=== PATIENT | male | born 1940 | race Caucasian/White ===

== ENCOUNTER → 2020-03-14 14:18 | Outpatient (CLI) | payer OTHER, SELFPAY ==
[2020-03-15 10:05] LABS: COVID19 Sendout NOT DETECTED (Not Detect)
== END ==
PROVIDERS: PCP Family Medicine; Visit Provider Physician Assistant
DX: Z01.812 Encounter for preprocedural laboratory examination (principal)
CPT/HCPCS: 87635

== ENCOUNTER 2020-03-17 06:23 | Inpatient (IN) | payer OTHER, SELFPAY ==
[2020-03-13 11:41] VITALS: BMI 32.5
[2020-03-17] VITALS (16 sets, daily range): BP systolic 104–170; BP diastolic 47–71; PULSE 58–81; RESP 7–16; TEMP 36–37.5; O2SAT 89–97; BMI 31.1
--- NOTE | 2020-03-17 | DI.RAD.S_ITS ---
PROCEDURE: XR LUMBAR SPINE 2-3V INDICATIONS: L4-L5 TLIF TECHNIQUE: 2 views of the lumbar spine were acquired. COMPARISON: None. FINDINGS: Interpreted views demonstrating L4-L5 paraspinal claude and pedicle screw fixation, interbody cage graft. There is expected intraoperative alignment Dictated by: Galileo Cruz M.D. on 03/17/2020 at 11:59 Approved by: Galileo Cruz M.D. on 03/17/2020 at 12:50
[2020-03-17] MEDS: LACTATED RINGERS 1,000 ML 42 ML IV ×2 (07:11→10:24)
[2020-03-17] MEDS: GABAPENTIN 300 MG CAPSULE PO (07:22)
[2020-03-17] MEDS: ACETAMINOPHEN 325 MG TABLET 975 MG PO (07:22)
[2020-03-17] MEDS: CEFAZOLIN 2 GM/100 ML FROZ.PIGGY IV ×3 (07:45→23:39)
--- NOTE | 2020-03-17 08:26 | SUR.OPER ---
Prone on spine table, head in foam head support, padded chest and pelvic supports, gel pad at knees, lower legs supported by pillows; nipples, genitalia and toes free of pressure, arms secured on foam padded arm boards at <90 degrees abduction. Tape over blanket at thigh secured to table.
[2020-03-17] MEDS: BUPIVACAINE LIPOSOME 266 MG/20 ML VIAL INJ (08:34)
[2020-03-17] MEDS: BUPIVACAINE 0.25% W/ EPI 30 ML VIAL INJ (08:35)
--- NOTE | 2020-03-17 11:02 | PM.PREOP ---
Pre-operative Note COVID-19 COVID-19 status: Negative Result date/Date tested (Pos, Neg/Pending): 03/14/20 Interval Note History & Physical reviewed/Exam performed by Physician: Yes Changes to H&P: No
--- NOTE | 2020-03-17 11:03 | P.OP_ITS ---
Operative Date/Time/Diagnoses Date of procedure: 03/17/20 Time of procedure: 07:55 Pre-op diagnosis: 1. L4-S1 spondylolisthesis 2. L4-S1 spinal stenosis with radiculopathy Post-op diagnosis: same Procedure & Clinicians Procedure: 1. L4-S1 Postero-lateral and posterior interbody fusion 2. L4-S1 interbody cage placement. 3. L4-S1 decompressive laminectomy with bilateral facetecomies 4. L4-S1 Posterior non-segmental instrumentation 5. F[place]on of bone marrow from iliac crest 6. Utilization of microsurgical technique and operating microscope Same procedure as scheduled: Yes Indications: Patient has been having chronic back pain and worsening lumbar radiculopathy. Patient failed multiple conservative management with worsening pain weakness and numbness in her lower extremity. Patient has been having difficulty performing activity of daily living. After discussing risks benefits of treatment options, patient elected proceed with surgery. For nomenclature purposes, patient's most caudal mobile segment is considered L4-S1. Patient has only 4 lumbar segments. In order to keep naming consistent, the fusion level is noted as L4-S1. Surgeon: Marilou Joiner Service Or Work Dispatcher Chief: Danette Giles Click Yes if Unassisted: No Anesthesia Type: General Operative Notes Closure Type: primary Specimen(s): none sent Prosthetic devices, grafts, tissues, transplants, or devices: Globus revolve screws, Rise cage Estimated Blood Loss (mL): 50 Blood products transfused: none Procedure in detail: Patient was seen in the preoperative area. Risks and benefits of the surgery was discussed with the patient. Informed consent was obtained from the patient and placed in the chart. Surgical site was marked. Patient was taken to the operative room. General anesthesia was administered. Prophylactic antibiotic was given to the patient less than 30 min before the incision was made. Patient was placed into a prone position on the Severino table. Patient's back was then prepped and draped in the sterile fashion. Time- out was performed at this time. Using AP and lateral C-arm imaging the interval between L4 and S1 was identified and marked on patient's back. A 2 inch incision 2 in from midline was made on the left side first. The fascia was incised in line with skin incision. Globus MARS retractors was placed inside the incision and docked onto the L4 lamina. Using microsurgical technique and operating microscope, a L4 laminectomy and L4- S1 facetectomy was performed using a Kerrison rongeur. The disc space at L4-5 was identified. And a total diskectomy was performed at L4-5 level. The endplates were decorticated using a rasp and shaver. The total diskectomy and decortication was performed at L4-S1 level in order to to accomplish a L4-S1 fusion. The local bone from the laminectomy and facetectomy was saved for local bone grafting. During the process of laminectomy and facetectomy a small dural defect was seen countered with minimum CSF leakage. A DuraGen and Tisseel was used to patch the dural defect. There was no CSF leakage during the process of the surgery. Patient's ligamentum flavum was found to be intimately connected to patient's dura at the L4-S1 epidural space. After the total diskectomy and decortication was completed, Trifecta bone graft material was combined with local bone that was harvested earlier. At this time, a separate skin is incision was made over the iliac crest. A Jamshidi needle was inserted into the iliac crest through a separate skin incision. 5 cc of bone marrow aspiration was obtained through the separate skin incision using a Jamshidi needle from the iliac crest. The bone marrow aspiration was combined with local bone and the Trifecta bone grafting material. The bone grafting material was placed into the L4-S1 interbody space along with a expandable cage. The cage was expanded to its maximum height using the torque limiting screwdriver. At this time a mirror image incision was made on the right side. The fascia was incised in line with the skin incision. Globus MARS retractor was inserted and docked onto the L4-S1 posterolateral gutter. Using the power drill, posterior- lateral decortication was performed at L4-S1 level until bleeding cortical bone was identified. The remaining bone grafting material was placed into the L4-S1 posterior lateral gutter he order to accomplish posterolateral fusion at the L4- S1 level. Using the double C-arm technique, pedicle screws were placed into the L4-S1 pedicles bilaterally. This was done by placing the Jamshidi needle into the pedicles, then placing the guidewires over the Jamshidi needle, and finally placing the cannulated screws over the guidewires bilaterally. After the pedicle screws were placed, 2 titanium rods was locked into the heads of the pedicle screws using locking caps and torque limiting screwdriver. The thread reducers were used to reduce patient's spondylolisthesis. The spondylolisthesis was reduced to near anatomic position after the hardware was stabilized. After all the hardware was placed, and confirmed with AP and lateral C-arm imaging, the wound was then irrigated with sterile normal saline and packed with Ray-Gonzalez gauze for 3 min to accomplish hemostasis. After the gauze was removed the deep fascia was closed with #1 Vicryl suture. The subcutaneous layer was closed with 2-0 Vicryl. The skin was closed with skin keith. Patient tolerated the procedure well. There were no complications. Complications: none Post-operative Condition: stable Disposition: PACU Plan for aftercare: Admit to inpatient hospital
--- NOTE | 2020-03-17 11:52 | SUR.PHASEI ---
Pt stable, declines need of pain med, tolerating PO intake well. Pleasant and oriented. Report called to floor/interruptped in AC and she will call back. Dressing CDI, denies any numbness/tingling in extremities including left hand. Resp unlabored. RA trial desat to 89%, returned to O2 at 2LNP. sat presently 96%. will transport to AC soon with clothing bag and becker leather-like backpack.
--- NOTE | 2020-03-17 12:27 | SUR.PHASEI ---
[id number] to room 215, bed down and locked, call light within reach, SCDs on, Dressing check and repositioned in bed upon transfer, personal belongings in the room. Pt on O2 at 2LNP. Informed RN that he desats briefly and then pops back up to 97%. Pt A&O, pleasant and appreciative. No questions from patient or staff.
--- NOTE | 2020-03-17 12:51 | PC.NURSE ---
Addendum entered by Shelby Sahu R.N. 03/17/20 15:44: Continued to rest comfortably in bed. VSS. RR increased to 14/min and regular. PT in to see at this time. Addendum entered by Shelby Sahu R.N. 03/17/20 13:38: Admit assessments completed. Patient still rating back pain 5/10. States pain tolerable at this level and wanted to wait a little while longer to take something. Discussed that it takes 30-45 minutes for PO pain meds to work, encouraged to request when he is ready. Denies numbness/tingling in any extremities. Tolerating ice water without N/V. BT+, hypoactive. Lungs CTA. HRR. Resting quietly with eyes closed. Resp. rate 8-10/min (seems to have periodic apnea which he is aware of) SpO2 95% on 2L w/ cont pulse ox in place. VSS. Call light in reach, bed alarm on. Addendum entered by Shelby Sahu R.N. 03/17/20 13:14: CBG check = 108 Original Note: Post-op: Arrived to room 215 at 1220. Drowsy but awakens easily to voice/touch. Rates back pain 5/10 when awake. Dressing to mid low back C/D/I. VSS. Cont pulse ox in place, sats on 2L 95%. Resting quietly with eyes closed at this time. Respirations regular, 10/min. Pain 0 on FLACC scale. IVF per order. This bid writer noted that there are no surgeon's orders to transfer at this time. Spoke with Sandra who is the RN in OR with Dr Joiner at this time. Per Sandra, Dr Joiner said he will enter orders when he's finished with the case he's in now. Patient was oriented to room and call light and encouraged to make needs known. Light within reach, bed alarm active.
[2020-03-17] MEDS: LACTATED RINGERS 1,000 ML 120 ML IV (13:04)
[2020-03-17] MEDS: LACTATED RINGERS 1,000 ML 125 ML IV ×2 (14:33→20:00)
--- NOTE | 2020-03-17 15:28 | CM.DANOTE ---
DCP/Assessment: Reviewed chart. Patient is a 79yr old male admitted to I.. for elective spinal surgery. PCP is Dr. Dueñas. Primary payor is 1)[facility]. Met with patient explained CM/SW role. Patient underwent surgery today, patient resting comfortably at time of visit. Patient has not been seen by therapy, evaluation pending. Patient reports that he resides with his spouse/Lisa in . At this time patient does not anticipate any d/c planning needs. Patient reports that he hopes to go home tomorrow? Patient reports that he has all needed DME. Prior to admit patient I in ADL's and drives at baseline. Notified patient that CM team would f/u as needed for any d/c planning needs that may arise. Patient agreeable. P: Anticipate home when stable. CM team to f/u after therapy evaluation completed. LATONYA Flores Discharge Planning/Care Management Advanced directive, confirm from FAMILY Start: 03/17/20 13:25 Freq: Q24H Status: Active Protocol: Document 03/17/20 13:25 KTE (Rec: 03/17/20 13:25 KTE [id number]) Advance Directive, confirm on record Time 07:00 Person contacted Copy received No CM Discharge Assessment Start: 03/17/20 15:21 Freq: Status: Active Protocol: Document 03/17/20 15:23 KJS (Rec: 03/17/20 15:28 KJS [id number]) Discharge Planning Assessment Assigned Roll Winder LATONYA Flores Advance Directives? Yes Advance Directives on File No History Provided By Patient,Medical Record Prior Living Arrangements House Household Members spouse Type of transporation used prior to Drives own vehicle admit Independent with ADL's Yes Is patient alert and oriented? Yes Caregiver for Another No Barriers to Discharge No Discharge Plan Home Transportation Arrangement Family to provide transport when patient medically stable. Whiteboard Updated in Patient Room with Yes name and ext. # of Roll Winder Review Status In Process Next Review Type Continued Stay Review Pre-Anesthesia Assessment Start: 03/13/20 11:41 Freq: Status: Active Protocol: Document 03/13/20 11:41 CAB (Rec: 03/13/20 13:55 CAB [id number]) Pre-Anesthesia Assessment Preferred Name Paul Patient Information Reviewed Via Phone Assessment Assessment Completed With Patient Comment Outside labs/EKG, COVID scheduled @ 03/14/20 Primary Care Provider Rigo Dueñas Seen Specialist in Last 12 Months Yes Specialist Seen [employer] Digital Marketing,Seed Potato Arranger, Orthopedist Comment PCP visit 03/05/20 scanned to record Primary Language Luxembourger Whiskey Regauger Required No Height 175.26 cm Weight 99.79 kg Body Mass Index (BMI) 32.5 Hearing Ability Normal Visual Assist None Dentition Type Teeth, Natural Present Barriers to Learning None Hx Anesthesia Reactions No Hx Family Anesthesia Reaction No Hx Malignant Hyperthermia No Hx Blood Transfusions No Anesthesia Review Requested No alcohol intake current alcohol intake frequency a few times a month Smoking Status Former smoker how long ago did patient quit smoking Quit 2005 Substance Use Type does not use Pain Present Pain Reported Musculoskeletal Symptoms Abnormal Gait,Back Pain, Difficulty Walking,Numbness History of Falling (Recent or History of No ) Patient is completely paralyzed or No completely immobile Mental Status Oriented to own ability Is patient on oxygen? No Does patient have BEAR/SOB Yes: r/t COPD Hx Sleep Apnea No Currently Taking a Beta [place] Yes: Propranolol Can You Climb a Flight of Stairs Without Yes SOB Hx Chest Pain Yes: w/MA 2014 Hx SOB Yes: r/t COPD Hx Syncope or Dizziness No Anti-Coagulant Therapy Yes: Plavix-pt advised to hold 03/12/20 per Surgeon Has a Vp Of Digital Marketing Yes: Dr. Miller-last visit Cardiac Testing Echo 09/05/19 EF 60-65% Hx Pacemaker/ICD No Pacemaker Rep Required? No Cardiac Clearance Received Not Applicable Comment Cardiac records scanned to chart Diet Type At Home Regular dysphagia No Urinary Catheter Present No Hx Urinary Self Catheterization No Diabetes Yes: Pt checks blood sugar at home HgbA1C 6.5 Date 02/28/20 Hx Drug Resistant Organism No Presence of External or Internal Medical Yes: Bilat eye lens, cardiac Devices stents x 2 Have you had any close contact with No someone diagnosed with COVID-19? Evaluation/Screening for possible COVID- Yes 19 infection completed? Marital Status Lives With spouse Prior Living Arrangements House Number of Floors (Floors) One Floor Support System Spouse Does the Patient Have Assistance After Yes Surgery Patient Discharge Plan Description Return Home Comment Pt advised overnight length of stay Feels Safe in Current Environment Yes Been Physically Hurt or Threatened By a No Person in Current Environment Do you have thoughts of harming yourself None or others? Are you currently considering suicide? No Do you have a plan to hurt yourself or No Plan others? Do You Have Any Spiritual Beliefs That No May Affect Your HC Choices? Do You Have Any Cultural Practices That No May Affect Your HC Choices? Comment Episcopalian Who Can We Speak to About Patient's Care Family, friends Identifying Code for Release of Patient Declines to issue Information Health Care Proxy/Next of Kin Lisa () Health Care Proxy Emergency Contact Name Lisa () Emergency Contact Advance Directives? Yes Advance Directives on File No Requested Patient Bring Advanced Yes Directives DOS Power of Hot Header Operator Yes Power of Hot Header Operator Name Lisa () Power of Hot Header Operator PAC Instructions Durable medical equipment, Medications to take/avoid, Nasal antibiotic,No ETOH/ petroleum product on skin DOS, NPO,Post-op transportation,Pre -surgical wash,Sturdy shoes/ comfortable clothes,Do not bring valuables and remove jewelry
--- NOTE | 2020-03-17 16:22 | PT.IIE ---
Current Diagnoses Spondylolisthesis, lumbosacral region (03/17/20) Other spondylosis with radiculopathy, lumbosacral region (03/17/20) Spinal stenosis, lumbar region without neurogenic claudication (03/17/20) Surgery Performed Operation Date: 03/17/20 07:45 Actual Procedures p L4-S1 TLIF(Not Applicable) - Marilou Joiner MD Surgical History (Last Updated 03/13/20 @ 13:41 by Tori Finnegan RN) History of vasectomy (Acute) Hx of bilateral cataract extraction (Acute) Hx of cardiac cath (Acute 06/2008) Hx of heart artery stent (Acute ~2007) Hx of tonsillectomy (Acute) Medical History (Last Updated 03/13/20 @ 13:55 by Tori Finnegan RN) AAA (abdominal aortic aneurysm) (Acute) Allergic rhinitis (Acute) Amaurosis fugax (Acute) Back pain (Acute) BCC (basal cell carcinoma) (Acute) Benign head tremor (Acute) CAD (coronary artery disease) (Acute) Chest pain (Acute ~2007) COPD (chronic obstructive pulmonary disease) (Acute) Diabetes (Acute) Foraminal stenosis of lumbar region (Acute) HLD (hyperlipidemia) (Acute) HTN (hypertension) (Acute) Myocardial infarction (Acute ~2007) Temporary cerebral vascular dysfunction (Acute) TIA (transient ischemic attack) (Acute) Physical Therapy Inpatient Evaluation/Re-Eval M1 PT/OT-IP Prior Functional Status Start: 03/17/20 12:20 Freq: NEEDED Status: Active Protocol: Document 03/17/20 16:00 AW (Rec: 03/17/20 16:22 AW [id number]) Medical Review Prior Functional Status Medical History Reviewed Yes Diet/Fluid Consistency Regular Communication WNL Mobility and Gait Independent without AD Activities of Daily Living and IADL's Independent with all ADL/IADL' s. Pt drives, manages his own medications, and manages his own finances. Social History Household Members spouse Living Arrangements House Number of Floors (Floors) One Floor Number of Stairs To Enter/Railing? 2 OSMIN at front of house with no railing. Ramped entry through garage. Home Environment Standard Height Toilet,Walk in Shower Home Equipment Front Wheel Walker,Straight Cane Employment Status Retired Additional Social History Comment Pt lives with his supportive , Lisa, who will be available and able to assist at discharge. M2 PT-IP Current Condition Start: 03/17/20 12:20 Freq: NEEDED Status: Active Protocol: Document 03/17/20 16:00 AW (Rec: 03/17/20 16:22 AW [id number]) Physical Therapy Current Condition Current Condition Evaluation Date 03/17/20 Treatment Diagnosis s/p L4-S1 TLIF; difficulty in walking Onset Date 03/17/20 Precautions Lumbar Precautions Log Roll,No Twisting,Limit Bending,Lifting Restriction of 10 lbs,Gait Belt above Incisional Area Weight Bearing Status Weight Bearing Status Weight Bear as Tolerated M3 PT-IP Subjective Start: 03/17/20 12:20 Freq: NEEDED Status: Active Protocol: Document 03/17/20 16:00 AW (Rec: 03/17/20 16:22 AW [id number]) Subjective Physical Therapy Visit Type Type Initial Evaluation Visit Start Time 15:29 Visit Stop Time 15:58 Total Visit Minutes 29 Physical Therapy Visit Comments Patient Comments Pt has had good pain control and is willing to participate with PT. Patient Goals Pt hopes to return home at discharge. Therapy Pain Assessment Pain When Pain Assessed During Mobility Pain Present Pain Present Pain Reported Location low back, left Intensity 4 Scale Used Numeric (0 - 10) Pain Behaviors Facial Grimacing,Guarding Pain Management Techniques Distraction,Re-positioning, Timing of Activity with Medications M4 PT-IP Mobility and Gait Start: 03/17/20 12:20 Freq: NEEDED Status: Active Protocol: Document 03/17/20 16:00 AW (Rec: 03/17/20 16:22 AW [id number]) PT-Bed Mobility Assessment Rolling Type of Rolling Log Rolling,Roll to Left Level of Assist Contact Guard Assistance Supine to Sit Supine to Sit Minimal Assistance Scooting Scooting to Edge of Bed Standby Assistance PT-Transfer Assessment Sit to and From Stand Sit to and from Stand Contact Guard Assistance,Use of Upper Extremities Equipment Transfer Assistive Device Gait Belt,Front Wheeled Walker Orthotic/Prosthetic Devices or Brace: No Transfers Transfer Destination Chair Transfer Technique pt ambulated with FWW Transfer Ability Level of Assist Contact Guard Assistance,1 Person Assistance,Use of Upper Extremities Comments Mobility Comments With HOB flat, pt log rolled to his left side with CGA and verbal cues for sequencing. He completed sidelying to sit min A x 1. Pt was able to sit EOB with and without UE support and then stood using FWW CGA and cues for pushoff with BUE. Pt then ambulated to the toilet with FWW CGA where he pushed the walker over the toilet and stood to void. After successfuly voiding, pt transferred to the chair CGA and cues for neutral spine during transition. Pt was positioned in the chair with call light and all needs within reach. RN/FREEDOM OF INFORMATION OFFICER notified for placement of chair alarm. Gait Assessment Gait Gait Assistance Required: Contact Guard Assist Distance (Feet) 25 Able to Maintain Weight Bearing Status Yes During Gait Assistive Devices Assistive Device Gait Belt,Front Wheeled Walker Orthotic/Prosthetic Devices or Brace: No Gait Deviations General Gait Pattern Antalgic,Decreased Stride Length,Decreased Feet Clearance,Flexed Trunk,Step-to Gait Factors Limiting Gait Function Factors Limiting Gait Function Decreased Activity Tolerance, Decreased Sensation,Decreased Strength,Limited Range of Motion,Pain,Poor Balance,Poor Safety Awareness Comments Gait Comments Pt ambulated in the room with FWW CGA. He was slightly impulsive, joking and dancing at one point, but without LOB Stair Climbing Assessment Comments Stair Climbing Comments Not assessed. Pt can use ramped entry at home. PT-Balance Assessment Sitting Balance and Reactions Static Sitting Balance Ability Normal Dynamic Sitting Balance Ability Normal Standing Balance and Reactions Static Standing Balance Ability Good Dynamic Standing Balance Ability Good Device Used FWW M5 PT-IP Objective Assessments Start: 03/17/20 12:20 Freq: NEEDED Status: Active Protocol: Document 03/17/20 16:00 AW (Rec: 03/17/20 16:22 [id number]) Orientation Orientation/Cognition Level of Alertness Alert Orientation Name,Day of Week,Place, Situation Language Function Ability No Deficits Noted Safety Awareness Decreased Safety Awareness Memory Description No Deficits Noted Gross Range of Motion Lower Extremity ROM Assessment Within Functional Limits Strength Lower Extremity Strength Assessment Bilaterally Impaired Hip 4-/5 Knee 4/5 Ankle 5/5 Coordination Assessment Gross Coordination Gross Coordination WNL Sensation Assessment Sensation Gross Sensation Left LE Impaired Comments Sensation Comments Pt reports left sided low back and groin pain with mobility. Muscle Tone Muscle Tone WNL Yes M6 PT-IP Treatment Start: 03/17/20 12:20 Freq: NEEDED Status: Active Protocol: Document 03/17/20 16:00 AW (Rec: 03/17/20 16:22 AW [id number]) Physical Therapy Treatment Education Education Provided Precautions,Weight Bearing Status,Post-Op Packet,Safety Other Treatments Other Treatment Performed Provided education on role of PT, plan of care, post-op precautions, and safe use of FWW M7 PT-IP Assessment and Plan Start: 03/17/20 12:20 Freq: NEEDED Status: Active Protocol: Document 03/17/20 16:00 AW (Rec: 03/17/20 16:22 AW [id number]) PT Summary Assessment and Plan Potential Rehabilitation Potential Good Status of Condition at Evaluation Evolving Summary Impairments Pain,ROM,Sensation,Bed Mobility,Transfers,Gait, Activity Tolerance Assessment Summary Paul is a 79 yo man seen for PT evaluation on POD0 following L4-S1 TLIF. He is functionally independent at baseline. On evaluation, pt required min assist for bed mobility and CGA for all out of bed mobility. PT anticipates he will meet the goals of this plan of care and be safe to discharge to his home environment with spouse assisting once medically cleared. Goals Bed Mobility Goal Standby Assistance Transfer Goal Independent,Four Wheeled Walker Gait Goal Independent,Four Wheel Walker Gait Distance 200 Days to Meet Goals 3 Frequency of Treatment Frequency Of Treatment Twice a Day Treatment Plan Physical Therapy Treatment Plan Bed Mobility Training,Transfer Training,Gait Training, Therapeutic Exercise,Balance Retraining,Post Op Education, Discharge Planning,Hot or Cold Pack Other Recommendations and Next Treatment bed mobility/logroll; progress Focus gait with FWW: review precautions Recommendations To Nursing Amount of Assist Needed Standby Assistance Discharge Recommendations PT Discharge Recommendations Home with Assistance Transportation Needs at Discharge Private Vehicle
[2020-03-17] MEDS: OXYCODONE IR 5 MG TABLET 10 MG PO (16:47)
[2020-03-17] MEDS: hydrOXYzine pamoate 25 MG CAPSULE PO (17:43)
[2020-03-17] MEDS: ACETAMINOPHEN 325 MG TABLET 650 MG PO (17:43)
[2020-03-17] MEDS: SENNOSIDES 8.6 MG TABLET 17.2 MG PO (20:00)
[2020-03-17] MEDS: DOCUSATE 100 MG CAPSULE PO (20:00)
[2020-03-17] MEDS: PROPRANOLOL 40 MG TABLET PO (20:01)
--- NOTE | 2020-03-17 22:37 | PC.NURSE ---
Evening note: VS stable. William remains Ox3 & to situation. William reporting pain to his back prior to dinner, rating it 7 on pain scale. Medicated with oxycodone 10 mg just prior to dinner. One hour later still reported pain a 7, medicated with vistaril 25 mg. About an hour after that patient said he was still uncomfortable, reporting relief after repositioned him to his left side, has been dozing ever since. Upon reassessment he said he doesn't really have any pain. Lower back gauze drsg is CDI, ice pack applied intermittently. CMS intact, denies numbness to extremities. Transfered to recliner earlier this afternoon with help from P.T. Staff WRESTLING COACH assist back to bed, he is doing well with 1 assist/fww/gait belt. Has voided 3 times with no reported difficulty, have been unmeasured voids as he prefers to urinate via toilet. HS meds given with sips of water. Refused snack tonight. Has been dozing again since my last assessment, fall precautions in place, alarm active for safety.
[2020-03-18] VITALS (7 sets, daily range): BP systolic 98–140; BP diastolic 49–64; PULSE 62–68; RESP 14–18; TEMP 36.8–37.5; O2SAT 92–96
[2020-03-18] MEDS: OXYCODONE IR 5 MG TABLET 10 MG PO ×4 (02:31→13:54)
--- NOTE | 2020-03-18 02:53 | PC.NURSE ---
Addendum entered by Bailee Nieves R.N. 03/18/20 06:12: States back pain is 3/10 at rest and 6/10 with movement; medicated with Oxycodone Original Note: Patient seen and assessed at 2347. Is alert and oriented. Breath sounds diminished but CTA. Initially RA sat in 80's so placed on oxygen at 2L/min per NC with sat now at 94%. HRR. Denies nausea. BT present but denies flatus. Is able to move himself in bed. Standing at bedside with walker and 1 assist to void; denies dysuria, frequency or urgency. Dressing to back is CDI. CMS is intact bilaterally. Wearing bilateral calf SCD's. Pain at time of assessment was described as an ache with severity of 4/10 but declined pain medication. Now when up stated pain is 5-6/10 so medicated with Oxycodone. Fall risk score is moderate and bed alarm is activated.
--- NOTE | 2020-03-18 07:58 | PM.PN.1 ---
Exam Vital Signs (past 8 hours): - 03/18/20 01:29 03/18/20 04:12 Temperature 99.5 F 98.2 F Pulse Rate 68 65 Respiratory Rate 18 18 Blood Pressure 116/51 L 140/64 Pulse Oximetry 94 96 Oxygen Delivery Method Nasal Cannula Oxygen Flow Rate 2 Assessment & Plan Assessment & Plan narrative: Patient is admitted after surgery. POD#1 s/p lumar fusion. Pain well controlled. Patient has been stable and progressing with physical therapy. Patient is neurovascularly intact on exam. Patient has no signs or symptoms of DVT. Patient's dressing is clean dry and intact. D/c after cleared by PT. Quality VTE Deep Vein Thrombosis/Pulmonary Embolism Present on Admission: No
[2020-03-18] MEDS: SODIUM CHLORIDE 0.9% FLUSH 10 ML IV (09:17)
[2020-03-18] MEDS: DOCUSATE 100 MG CAPSULE PO (09:17)
[2020-03-18] MEDS: ACETAMINOPHEN 325 MG TABLET 650 MG PO ×2 (09:17→13:54)
[2020-03-18] MEDS: MULTIVIT,CALC,MINS/IRON/FOLIC 1 TABLET 1 TAB PO (09:18)
[2020-03-18] MEDS: FENOFIBRATE 160 MG TABLET PO (09:18)
[2020-03-18] MEDS: CHOLECALCIFEROL (VITAMIN D3) 1,000 UNIT TABLET 1000 UNIT PO (09:18)
[2020-03-18] MEDS: lisinopriL 10 MG TABLET PO (09:18)
[2020-03-18] MEDS: PROPRANOLOL 40 MG TABLET PO (09:19)
--- NOTE | 2020-03-18 09:47 | OT.IP.EVAL ---
Current Diagnoses Spondylolisthesis, lumbosacral region (03/17/20) Other spondylosis with radiculopathy, lumbosacral region (03/17/20) Spinal stenosis, lumbar region without neurogenic claudication (03/17/20) Surgery Performed Operation Date: 03/17/20 07:45 Actual Procedures p L4-S1 TLIF(Not Applicable) - Marilou Joiner MD Past Medical History (Last Updated 03/13/20 @ 13:55 by Tori Finnegan RN) AAA (abdominal aortic aneurysm) (Acute) Allergic rhinitis (Acute) Amaurosis fugax (Acute) Back pain (Acute) BCC (basal cell carcinoma) (Acute) Benign head tremor (Acute) CAD (coronary artery disease) (Acute) Chest pain (Acute ~2007) COPD (chronic obstructive pulmonary disease) (Acute) Diabetes (Acute) Foraminal stenosis of lumbar region (Acute) HLD (hyperlipidemia) (Acute) HTN (hypertension) (Acute) Myocardial infarction (Acute ~2007) Temporary cerebral vascular dysfunction (Acute) TIA (transient ischemic attack) (Acute) Surgical History (Last Updated 03/13/20 @ 13:41 by Tori Finnegan RN) History of vasectomy (Acute) Hx of bilateral cataract extraction (Acute) Hx of cardiac cath (Acute 06/2008) Hx of heart artery stent (Acute ~2007) Hx of tonsillectomy (Acute) Occupational Therapy Inpatient Evaluation/Re-Eval M1 PT/OT-IP Prior Functional Status Start: 03/18/20 09:24 Freq: NEEDED Status: Active Protocol: Document 03/18/20 08:42 [facility] (Rec: 03/18/20 09:47 [facility] [id number]) Medical Review Prior Functional Status Medical History Reviewed Yes Diet/Fluid Consistency Regular Communication WNL Mobility and Gait Independent without AD Activities of Daily Living and IADL's Independent with all ADL/IADL' s. Pt drives, manages his own medications, and manages his own finances. Social History Household Members spouse Living Arrangements House Number of Floors (Floors) One Floor Number of Stairs To Enter/Railing? 2 OSMIN at front of house with no railing. Ramped entry through garage. Home Environment Standard Height Toilet,Walk in Shower Home Equipment Front Wheel Walker,Straight Cane Employment Status Retired Additional Social History Comment Pt lives with his supportive , Lisa, who will be available and able to assist at discharge. M2 OT-IP Current Condition Start: 03/18/20 09:24 Freq: Status: Active Protocol: Document 03/18/20 08:42 [facility] (Rec: 03/18/20 09:47 [facility] [id number]) Occupational Therapy Current Condition Current Condition Evaluation Date 03/18/20 Treatment Diagnosis Spinal Stenosis, s/p L4-S1 TLIF Diagnosis Onset Date 03/17/20 Post Operative Precautions Lumbar Precautions Log Roll,No Twisting,Limit Bending,Lifting Restriction of 10 lbs,Gait Belt above Incisional Area Weight Bearing Status Weight Bearing Status Weight Bear as Tolerated M3 OT- IP Subjective and Pain Start: 03/18/20 09:24 Freq: Status: Active Protocol: Document 03/18/20 08:42 [facility] (Rec: 03/18/20 09:47 [facility] [id number]) OT- Subjective Occupational Therapy Visit Type Type Initial Evaluation Visit Start Time 08:42 Visit Stop Time 09:24 Total Visit Minutes 42 Occupational Therapy Visit Comments Patient Comments Pt willing to get up for OT eval. Patient/Caregiver Goals To go home. OT Pain Assessment Pain When Pain Assessed During Mobility Pain Present Pain Present Pain Reported Location Back Intensity 6 M4 OT- IP ADL's Start: 03/18/20 09:24 Freq: Status: Active Protocol: Document 03/18/20 08:42 [facility] (Rec: 03/18/20 09:47 [facility] [id number]) OT HTQ-[id number]-[id number] General Evaluation Self-Feeding Ability Independent OT ADL-Grooming General Evaluation Grooming Ability Standby Assistance Areas Needing Assistance Retrieving/Set-up of Grooming Items Comments OT Grooming Comments While standing with FWW at the sink. Educated to bend at hips to spit into the sink or spit into a cup to adhere to back precautions. OT ADL-Oral Care General Eval Oral Care Ability Independent OT ADL-Dressing General Eval Lower Body Dressing Ability Maximum Assistance Areas Needing Assistance Socks Comments OT Dressing Comments Able to educated pt for use of LB dressing equipment to help increased ease and to be able to follow back precautions for socks,shoes, pants. Pt states his will also be able to assist. LB dressing equipment issued as pt states usually wake up before his . OT ADL-Toileting General Evaluation Toileting Ability Maximum Assistance Devices Toileting Assistive Devices Grab Bars Comments OT Toileting Comments At this time pt unable to reach to wipe when sitting or standing and would need assist . In addition , pt needing heavy use of grab bar to stand and would benefit from RTS or BSC. OT ADL-Bathing Comments OT Bathing Comments Pt not wanting to shower at this time. Suggested would be best to have shower chair at home to use and to assist. M5 OT- IP IADL's Start: 03/18/20 09:24 Freq: Status: Active Protocol: Document 03/18/20 08:42 [facility] (Rec: 03/18/20 09:47 [facility] [id number]) OT-Instrumental Activities of Daily Living Home Safety Awareness Home Safety Comments Pt a little groggy and would benefit from to assist for IADL needs at this time and ADl's as needed. Medication Management Medication Management Comments Pt states prior did his own medications. Money Management Money Management Comments Pt states prior was independent to do his meds. Meal Preparation Meal Preparation Caregiver Provides Assist Administrative Office Manager Administrative Office Manager Caregiver Provides Assist Driving Driving Caregiver Provides Assist M6 OT- IP Functional Cognition Start: 03/18/20 09:24 Freq: Status: Active Protocol: Document 03/18/20 08:42 [facility] (Rec: 03/18/20 09:47 [facility] [id number]) Cognitive Factors Limiting Selfcare Function Cognitive Ability Level of Alertness Alert Patient Orientation Name,Place,Situation Attention Span Ability Capable of Focused Attention, Capable of Sustained Attention Ability to Follow Commands Able to Follow One Step Commands Safety Awareness Decreased Recall of Precautions,Decreased Ability to Apply Precautions Problem Solving Ability Needs Assist to Identify Solutions Cognitive Comments Cognitive Assessment Comments Pt a bit impulsive and needing cues to slow down and incorporate back precautions during ADl and mobility needs. Pt trying to back up from the doorway on the bathroom to get to the toilet. Pt needing cues to keep the FWW in front of him at all times. OT- Vision and Hearing OT- Hearing Assessment OT- Hearing Assessment WFL M7 OT- IP Mobility and Balance Start: 03/18/20 09:24 Freq: Status: Active Protocol: Document 03/18/20 08:42 [facility] (Rec: 03/18/20 09:47 [facility] [id number]) OT- Bed Mobility Assessment Rolling Type of Rolling Roll to Left Supine to Sit Supine to Sit Assist Minimal Assistance Scooting Scooting to Edge of Bed Minimal Assistance OT-Transfer Assessment Sit to and From Stand Sit to and from Stand Contact Guard Assistance, Minimal Assistance Transfers Transfer Ability Standby Assistance,Contact Guard Assistance Technique Transfer Destination Bed,Chair,Toilet Transfer Technique Stand Step Pivot Devices Transfer Assistive Devices Gait Belt,Front Wheeled Walker Comments Mobility Comments BP sitting 143/55, O2 on 2L 94 -95% . O2 on RA 88%-91%, tends to drop during exertion and needing to take a few deep breaths to increase over 90%. Nursing aware and agreed to lower o2 to 1L at this time. OT- Gait Assessment Comments Gait Ability Comments SBA with FWW, CGA when pt tires. OT- Balance Assessment Sitting Balance and Reactions Static Sitting Balance Ability Normal Dynamic Sitting Balance Ability Good Standing Balance and Reactions Static Standing Balance Ability Good M8 OT- IP Objective Assessments Start: 03/18/20 09:24 Freq: Status: Active Protocol: Document 03/18/20 08:42 [facility] (Rec: 03/18/20 09:47 [facility] [id number]) OT Gross Range of Motion Upper Extremity Range of Motion Assessment Within Functional Limits OT Strength Upper Extremity Strength Assessment Within Functional Limits Comments Strength Comments Right retanner appears stronger than left retanner even though left hand dominant. OT- Coordination Assessment Comments Coordination Comments Assist to open film on the toothpaste. OT-Muscle Tone Assessment Muscle Tone WNL Yes M9 OT- IP Assessment and Plan Start: 03/18/20 09:24 Freq: Status: Active Protocol: Document 03/18/20 08:42 [facility] (Rec: 03/18/20 09:47 [facility] [id number]) OT Summary Assessment and Plan Potential Rehabilitation Potential Good Analytic Complexity at Evaluation Low Summary OT Impairments Balance,Functional Cognition, Functional Mobility,Dressing, Toileting,Bathing,Toilet Transfers Progress Towards Goals Progressing Toward Goals,Slow Progress due to Pain,Slow Progress due to Activity Tolerance Assessment Summary Pt low complexity and main barriers are pain, steps and safety awareness and now needing one person assist to help incorporate back precautions for Adl and functional mobility needs. Pt will benefit from caregiver training prior to going home. In addition , pt to check in he has RTS/BSC and shower chair at home. Goals Dressing Goal Independent Toileting Goal Minimal Assistance Bathing Goal Standby Assistance Toilet Transfer Goal Independent Shower Transfer Goal Standby Assistance Patient/Caregiver Education Goal Caregiver Independent Assisting Patient Days to Meet Goals 3 Frequency of Treatment Frequency Of Treatment Once a Day Treatment Plan OT Treatment Plan ADL Training,Functional Cognition Training,Functional Mobility,Patient/Family Education,Discharge Planning Other Treatment Recommendations and Next Shower if willing, caregiver Treatment Focus training Discharge Recommendations OT Discharge Recommendations Home with Assistance Home Equipment Needs BSC/RTS, shower chair Transportation Needs at Discharge Private Vehicle
[2020-03-18] MEDS: TIOTROPIUM BROMIDE 18 MCG INHALER INH (10:15)
--- NOTE | 2020-03-18 10:51 | PT.IPTN ---
Current Diagnoses Spondylolisthesis, lumbosacral region (03/17/20) Other spondylosis with radiculopathy, lumbosacral region (03/17/20) Spinal stenosis, lumbar region without neurogenic claudication (03/17/20) Surgery Performed Operation Date: 03/17/20 07:45 Actual Procedures p L4-S1 TLIF(Not Applicable) - Marilou Joiner MD Physical Therapy Treatment Note M2 PT-IP Current Condition Start: 03/17/20 12:20 Freq: NEEDED Status: Active Protocol: Document 03/17/20 16:00 [facility] (Rec: 03/17/20 16:22 [facility] [id number]) Physical Therapy Current Condition Current Condition Evaluation Date 03/17/20 Treatment Diagnosis s/p L4-S1 TLIF; difficulty in walking Onset Date 03/17/20 Precautions Lumbar Precautions Log Roll,No Twisting,Limit Bending,Lifting Restriction of 10 lbs,Gait Belt above Incisional Area Weight Bearing Status Weight Bearing Status Weight Bear as Tolerated M3 PT-IP Subjective Start: 03/17/20 12:20 Freq: NEEDED Status: Active Protocol: Document 03/18/20 10:34 [facility] (Rec: 03/18/20 11:49 [facility] [id number]) Subjective Physical Therapy Visit Type Type Treatment Note Visit Start Time 10:34 Visit Stop Time 10:51 Total Visit Minutes 17 Number of TRAVELERS' AID WORKER Visits 1 Physical Therapy Visit Comments Patient Comments Pt willing to participate with therapy. Patient Goals Pt hopes to return home at discharge today Therapy Pain Assessment Pain When Pain Assessed During Mobility Pain Present Pain Present Pain Reported M4 PT-IP Mobility and Gait Start: 03/17/20 12:20 Freq: NEEDED Status: Active Protocol: Document 03/18/20 10:34 [facility] (Rec: 03/18/20 11:49 [facility] [id number]) PT-Bed Mobility Assessment Rolling Type of Rolling Log Rolling,Roll to Left Level of Assist Contact Guard Assistance Supine to Sit Supine to Sit Contact Guard Assistance PT-Transfer Assessment Sit to and From Stand Sit to and from Stand Contact Guard Assistance,Use of Upper Extremities Equipment Transfer Assistive Device Gait Belt,Front Wheeled Walker Orthotic/Prosthetic Devices or Brace: No Transfers Transfer Destination Bed,Chair Transfer Technique pt ambulated with FWW Transfer Ability Level of Assist Contact Guard Assistance,1 Person Assistance,Use of Upper Extremities Comments Mobility Comments Pt stood from chair CGA and ambulated in room ~50ft w/FWW/ SBA with SpO2 on RA 89-90%. Pt performed reverse LR with Min A to get LE's onto bed. Pt then performed LR to left out of bed with CGA for supine-sit . Pt stood from bed SBA and ambulated back to chair. Left pt in chair with alarm on and all needs within reach. CG training with for bed mobility this afternoon before d/c. Gait Assessment Gait Gait Assistance Required: Standby Assistance Distance (Feet) 50 Able to Maintain Weight Bearing Status Yes During Gait Assistive Devices Assistive Device Gait Belt,Front Wheeled Walker Orthotic/Prosthetic Devices or Brace: No Gait Deviations General Gait Pattern Antalgic,Decreased Stride Length,Decreased Feet Clearance,Flexed Trunk Factors Limiting Gait Function Factors Limiting Gait Function Decreased Activity Tolerance, Decreased Sensation,Decreased Strength,Limited Range of Motion,Pain,Poor Balance,Poor Safety Awareness Comments Gait Comments Pt ambulated in room with SBA and cues to stay closer inside walker and for posture. Stair Climbing Assessment Comments Stair Climbing Comments Not assessed. Pt can use ramped entry at home. PT-Balance Assessment Sitting Balance and Reactions Static Sitting Balance Ability Normal Dynamic Sitting Balance Ability Normal Standing Balance and Reactions Static Standing Balance Ability Good Dynamic Standing Balance Ability Good Device Used FWW M5 PT-IP Objective Assessments Start: 03/17/20 12:20 Freq: NEEDED Status: Active Protocol: Document 03/17/20 16:00 [facility] (Rec: 03/17/20 16:22 AW [id number]) Orientation Orientation/Cognition Level of Alertness Alert Orientation Name,Day of Week,Place, Situation Language Function Ability No Deficits Noted Safety Awareness Decreased Safety Awareness Memory Description No Deficits Noted Gross Range of Motion Lower Extremity ROM Assessment Within Functional Limits Strength Lower Extremity Strength Assessment Bilaterally Impaired Hip 4-/5 Knee 4/5 Ankle 5/5 Coordination Assessment Gross Coordination Gross Coordination WNL Sensation Assessment Sensation Gross Sensation Left LE Impaired Comments Sensation Comments Pt reports left sided low back and groin pain with mobility. Muscle Tone Muscle Tone WNL Yes M6 PT-IP Treatment Start: 03/17/20 12:20 Freq: NEEDED Status: Active Protocol: Document 03/17/20 16:00 [facility] (Rec: 03/17/20 16:22 AW [id number]) Physical Therapy Treatment Education Education Provided Precautions,Weight Bearing Status,Post-Op Packet,Safety Other Treatments Other Treatment Performed Provided education on role of PT, plan of care, post-op precautions, and safe use of FWW M7 PT-IP Assessment and Plan Start: 03/17/20 12:20 Freq: NEEDED Status: Active Protocol: Document 03/18/20 10:34 [facility] (Rec: 03/18/20 11:49 [facility] [id number]) PT Summary Assessment and Plan Potential Rehabilitation Potential Good Status of Condition at Evaluation Evolving Summary Impairments Pain,ROM,Sensation,Bed Mobility,Transfers,Gait, Activity Tolerance Assessment Summary Pt recalled 3/3 back precautions. Pt able to stand from bed and chair SBA but requires CGA-Min A for bed mobility. Pt increased gait distance to ~50ft w/FWW/SBA with SpO2 on RA 89-90%. CG training set up with Caitlin this afternoon for bed mobility training. Goals Bed Mobility Goal Standby Assistance Transfer Goal Independent,Four Wheeled Walker Gait Goal Independent,Four Wheel Walker Gait Distance 200 Days to Meet Goals 3 Frequency of Treatment Frequency Of Treatment Twice a Day Treatment Plan Physical Therapy Treatment Plan Bed Mobility Training,Transfer Training,Gait Training, Therapeutic Exercise,Balance Retraining,Post Op Education, Discharge Planning,Hot or Cold Pack Other Recommendations and Next Treatment bed mobility/logroll; progress Focus gait with FWW: review precautions Recommendations To Nursing Amount of Assist Needed Standby Assistance Discharge Recommendations PT Discharge Recommendations Home with Assistance Transportation Needs at Discharge Private Vehicle
--- NOTE | 2020-03-18 12:49 | PT.IPTN ---
Current Diagnoses Spondylolisthesis, lumbosacral region (03/17/20) Other spondylosis with radiculopathy, lumbosacral region (03/17/20) Spinal stenosis, lumbar region without neurogenic claudication (03/17/20) Surgery Performed Operation Date: 03/17/20 07:45 Actual Procedures p L4-S1 TLIF(Not Applicable) - Marilou Joiner MD Physical Therapy Treatment Note M2 PT-IP Current Condition Start: 03/17/20 12:20 Freq: NEEDED Status: Active Protocol: Document 03/17/20 16:00 AW (Rec: 03/17/20 16:22 AW [id number]) Physical Therapy Current Condition Current Condition Evaluation Date 03/17/20 Treatment Diagnosis s/p L4-S1 TLIF; difficulty in walking Onset Date 03/17/20 Precautions Lumbar Precautions Log Roll,No Twisting,Limit Bending,Lifting Restriction of 10 lbs,Gait Belt above Incisional Area Weight Bearing Status Weight Bearing Status Weight Bear as Tolerated M3 PT-IP Subjective Start: 03/17/20 12:20 Freq: NEEDED Status: Active Protocol: Document 03/18/20 12:49 CLB (Rec: 03/18/20 13:26 CLB [id number]) Subjective Physical Therapy Visit Type Type Treatment Note Visit Start Time 12:49 Visit Stop Time 13:12 Total Visit Minutes 23 Notes present for CG training. Number of ENT CONSULTANT Visits 2 Physical Therapy Visit Comments Patient Comments Pt willing to participate with therapy. Patient Goals Pt hopes to return home at discharge today Therapy Pain Assessment Pain When Pain Assessed During Mobility Pain Present Pain Present Pain Reported M4 PT-IP Mobility and Gait Start: 03/17/20 12:20 Freq: NEEDED Status: Active Protocol: Document 03/18/20 12:49 CLB (Rec: 03/18/20 13:26 CLB [id number]) PT-Bed Mobility Assessment Rolling Type of Rolling Log Rolling,Roll to Left Level of Assist Contact Guard Assistance Sit to Supine Sit to Supine Minimal Assistance,1 Person Assistance Scooting Scooting to Edge of Bed Standby Assistance PT-Transfer Assessment Sit to and From Stand Sit to and from Stand Contact Guard Assistance,Use of Upper Extremities Equipment Transfer Assistive Device Gait Belt,Front Wheeled Walker Orthotic/Prosthetic Devices or Brace: No Transfers Transfer Destination Bed,Chair Transfer Technique pt ambulated with FWW Transfer Ability Level of Assist Contact Guard Assistance,1 Person Assistance,Use of Upper Extremities Comments Mobility Comments Pt required CGA for sit<>stand with cues for push off with arms of chair for safety. Pt ambulated in room then performed reverse LR into bed with Min A of LE's, pts able to assist with LE's. Pt then able to provide Min A for sidelying after log roll to sitting up on EOB. Pt able to scoot forward to EOB SBA and provided CGA to standing position. Pt ambulated back to chair. Pt recalled 3/3 back precautions. Gait Assessment Gait Gait Assistance Required: Standby Assistance Distance (Feet) 50 Able to Maintain Weight Bearing Status Yes During Gait Assistive Devices Assistive Device Gait Belt,Front Wheeled Walker Orthotic/Prosthetic Devices or Brace: No Gait Deviations General Gait Pattern Antalgic,Decreased Stride Length,Decreased Feet Clearance,Flexed Trunk Factors Limiting Gait Function Factors Limiting Gait Function Decreased Activity Tolerance, Decreased Sensation,Decreased Strength,Limited Range of Motion,Pain,Poor Balance,Poor Safety Awareness Comments Gait Comments Pt ambulated in room with SBA and cues to stay closer inside walker and for posture. provided SBA for pt during ambulation. Stair Climbing Assessment Comments Stair Climbing Comments Not assessed. Pt can use ramped entry at home. PT-Balance Assessment Sitting Balance and Reactions Static Sitting Balance Ability Normal Dynamic Sitting Balance Ability Normal Standing Balance and Reactions Static Standing Balance Ability Good Dynamic Standing Balance Ability Good Device Used FWW M5 PT-IP Objective Assessments Start: 03/17/20 12:20 Freq: NEEDED Status: Active Protocol: Document 03/17/20 16:00 AW (Rec: 03/17/20 16:22 AW [id number]) Orientation Orientation/Cognition Level of Alertness Alert Orientation Name,Day of Week,Place, Situation Language Function Ability No Deficits Noted Safety Awareness Decreased Safety Awareness Memory Description No Deficits Noted Gross Range of Motion Lower Extremity ROM Assessment Within Functional Limits Strength Lower Extremity Strength Assessment Bilaterally Impaired Hip 4-/5 Knee 4/5 Ankle 5/5 Coordination Assessment Gross Coordination Gross Coordination WNL Sensation Assessment Sensation Gross Sensation Left LE Impaired Comments Sensation Comments Pt reports left sided low back and groin pain with mobility. Muscle Tone Muscle Tone WNL Yes M6 PT-IP Treatment Start: 03/17/20 12:20 Freq: NEEDED Status: Active Protocol: Document 03/17/20 16:00 AW (Rec: 03/17/20 16:22 AW [id number]) Physical Therapy Treatment Education Education Provided Precautions,Weight Bearing Status,Post-Op Packet,Safety Other Treatments Other Treatment Performed Provided education on role of PT, plan of care, post-op precautions, and safe use of FWW M7 PT-IP Assessment and Plan Start: 03/17/20 12:20 Freq: NEEDED Status: Active Protocol: Document 03/18/20 12:49 CLB (Rec: 03/18/20 13:26 CLB [id number]) PT Summary Assessment and Plan Potential Rehabilitation Potential Good Status of Condition at Evaluation Evolving Summary Impairments Pain,ROM,Sensation,Bed Mobility,Transfers,Gait, Activity Tolerance Assessment Summary Pt recalled 3/3 back precautions and pt's was able to provide CGA for sit<> stand, SBA for gait and Min A for bed mobility. Pt seems able to d/c home with to assist when medically stable. Goals Bed Mobility Goal Standby Assistance Transfer Goal Independent,Four Wheeled Walker Gait Goal Independent,Four Wheel Walker Gait Distance 200 Days to Meet Goals 3 Frequency of Treatment Frequency Of Treatment Twice a Day Treatment Plan Physical Therapy Treatment Plan Bed Mobility Training,Transfer Training,Gait Training, Therapeutic Exercise,Balance Retraining,Post Op Education, Discharge Planning,Hot or Cold Pack Other Recommendations and Next Treatment bed mobility/logroll; progress Focus gait with FWW: review precautions Recommendations To Nursing Amount of Assist Needed Standby Assistance Discharge Recommendations PT Discharge Recommendations Home with Assistance Transportation Needs at Discharge Private Vehicle
--- NOTE | 2020-03-18 13:24 | OT.IP.TRT ---
Current Diagnoses Spondylolisthesis, lumbosacral region (03/17/20) Other spondylosis with radiculopathy, lumbosacral region (03/17/20) Spinal stenosis, lumbar region without neurogenic claudication (03/17/20) Surgery Performed Operation Date: 03/17/20 07:45 Actual Procedures p L4-S1 TLIF(Not Applicable) - Marilou Joiner MD Occupational Therapy Treatment Note M2 OT-IP Current Condition Start: 03/18/20 09:24 Freq: Status: Active Protocol: Document 03/18/20 08:42 [facility] (Rec: 03/18/20 09:47 [facility] [id number]) Occupational Therapy Current Condition Current Condition Evaluation Date 03/18/20 Treatment Diagnosis Spinal Stenosis, s/p L4-S1 TLIF Diagnosis Onset Date 03/17/20 Post Operative Precautions Lumbar Precautions Log Roll,No Twisting,Limit Bending,Lifting Restriction of 10 lbs,Gait Belt above Incisional Area Weight Bearing Status Weight Bearing Status Weight Bear as Tolerated M3 OT- IP Subjective and Pain Start: 03/18/20 09:24 Freq: Status: Active Protocol: Document 03/18/20 13:29 [facility] (Rec: 03/18/20 13:38 [facility] [id number]) OT- Subjective Occupational Therapy Visit Type Type Treatment Note Visit Start Time 13:16 Visit Stop Time 13:24 Total Visit Minutes 8 Occupational Therapy Visit Comments Patient Comments Pt seen for a second session due to caregiver training with pt's as discharging home today. Patient/Caregiver Goals To go home. M4 OT- IP ADL's Start: 03/18/20 09:24 Freq: Status: Active Protocol: Document 03/18/20 13:29 [facility] (Rec: 03/18/20 13:38 [facility] [id number]) OT ADL-Toileting Comments OT Toileting Comments Pt's aware will have to assist pt for hygiene needs. Pt's states has a RTS that pt will be able to use at home. Otherwise educated pt may have to get a toilet paper aid to assist for hygiene needs. OT ADL-Bathing Comments OT Bathing Comments Pt's states has tub bench that they can use for pt for showering needs. M5 OT- IP IADL's Start: 03/18/20 09:24 Freq: Status: Active Protocol: Document 03/18/20 08:42 [facility] (Rec: 03/18/20 09:47 [facility] [id number]) OT-Instrumental Activities of Daily Living Home Safety Awareness Home Safety Comments Pt a little groggy and would benefit from to assist for IADL needs at this time and ADl's as needed. Medication Management Medication Management Comments Pt states prior did his own medications. Money Management Money Management Comments Pt states prior was independent to do his meds. Meal Preparation Meal Preparation Caregiver Provides Assist Official Greeter Official Greeter Caregiver Provides Assist Driving Driving Caregiver Provides Assist M6 OT- IP Functional Cognition Start: 03/18/20 09:24 Freq: Status: Active Protocol: Document 03/18/20 08:42 [facility] (Rec: 03/18/20 09:47 [facility] [id number]) Cognitive Factors Limiting Selfcare Function Cognitive Ability Level of Alertness Alert Patient Orientation Name,Place,Situation Attention Span Ability Capable of Focused Attention, Capable of Sustained Attention Ability to Follow Commands Able to Follow One Step Commands Safety Awareness Decreased Recall of Precautions,Decreased Ability to Apply Precautions Problem Solving Ability Needs Assist to Identify Solutions Cognitive Comments Cognitive Assessment Comments Pt a bit impulsive and needing cues to slow down and incorporate back precautions during ADl and mobility needs. Pt trying to back up from the doorway on the bathroom to get to the toilet. Pt needing cues to keep the FWW in front of his at all times. OT- Vision and Hearing OT- Hearing Assessment OT- Hearing Assessment WFL M9 OT- IP Assessment and Plan Start: 03/18/20 09:24 Freq: Status: Active Protocol: Document 03/18/20 13:29 [facility] (Rec: 03/18/20 13:38 [facility] [id number]) OT Summary Assessment and Plan Potential Rehabilitation Potential Good Analytic Complexity at Evaluation Low Summary OT Impairments Balance,Functional Mobility, Dressing,Toileting,Bathing, Toilet Transfers Progress Towards Goals Progressing Toward Goals Assessment Summary Pt here and has good understanding and safety to be able to assist her for all needs for ADl's and equipment needs. Pt to go home with 's assist. Goals Days to Meet Goals 1 Frequency of Treatment Frequency Of Treatment Once a Day Discharge Recommendations OT Discharge Recommendations Home with Assistance Home Equipment Needs RTS, tub bench Transportation Needs at Discharge Private Vehicle
--- NOTE | 2020-03-18 15:35 | PC.NURSE ---
Discharge: Late entry (left approx 1435) IV dc'd intact. Patient was cleared by PT/OT to go home, was here for caregiver training. Reviewed all d/c instructions thoroughly. Reinforced spine precautions. F/U as prev. scheduled with Dr Joiner, reviewed s/sx with which to call MD. Instructed to that it's ok to shower starting tomorrow and to cover dressing with plastic to keep dry. Given a few Coversite dressings and instructed to change dressing only if it becomes wet or soiled, otherwise leave on until follow up (per Dr Joiner). Given paper scripts for Oxycodone and Vistaril. Patient and verbalized understanding of d/c instructions and stated no further questions. All belongings collected and sent with patient. Wheeled out to private vehicle by nursing staff. +
--- NOTE | 2020-04-02 15:41 | PM.HP.1 ---
History of Present Illness History of Present Illness Date Patient Seen: 03/12/20 Time Patient Seen: 13:41 Date of Onset of Symptoms: 04/08/15 Chief complaint: [id number] Narrative: Mr. Dixon is a 79 yo M with chronic back pain and progressive leg weakness. Patient has spondylolisthesis and spinal stenosis correlating to his symptoms. Patient History Medical History (Updated 03/13/20 @ 13:55 by Tori Finnegan RN) AAA (abdominal aortic aneurysm) (Acute) Allergic rhinitis (Acute) Amaurosis fugax (Acute) Back pain (Acute) BCC (basal cell carcinoma) (Acute) Benign head tremor (Acute) CAD (coronary artery disease) (Acute) Chest pain (Acute ~2007) COPD (chronic obstructive pulmonary disease) (Acute) Diabetes (Acute) Foraminal stenosis of lumbar region (Acute) HLD (hyperlipidemia) (Acute) HTN (hypertension) (Acute) Myocardial infarction (Acute ~2007) Temporary cerebral vascular dysfunction (Acute) TIA (transient ischemic attack) (Acute) Surgical History (Updated 03/13/20 @ 13:41 by Tori Finnegan RN) History of vasectomy (Acute) Hx of bilateral cataract extraction (Acute) Hx of cardiac cath (Acute 06/2008) Hx of heart artery stent (Acute ~2007) Hx of tonsillectomy (Acute) Family & Social History Social History: household members spouse Prior Living Arrangements House Safety & Behavioral: Feels Safe in Current Yes Environment Been Physically Hurt or No Threatened By a Person Suicidal Ideation Description None Suicide Plan Description No Plan Tobacco & Substance use: Tobacco type cigarettes Smoking Status Former smoker alcohol intake current alcohol intake frequency a few times a month Substance Use Type does not use Meds Home Medications and Allergies Home Medications Medication Instructions Recorded Confirmed Type Spiriva with HandiHaler 1 cap INHALATION DAILY 03/13/20 03/17/20 History albuterol sulfate 1 inh INHALATION QID PRN 03/13/20 03/17/20 History cholecalciferol (vitamin D3) 25 mcg PO DAILY 03/13/20 03/17/20 History [Vitamin D3] clopidogrel 75 mg PO DAILY 03/13/20 03/17/20 History fenofibrate 160 mg PO DAILY 03/13/20 03/17/20 History lisinopril 10 mg PO DAILY 03/13/20 03/17/20 History omega 1-rud-imr-fish oil [Fish Oil] 4 cap PO BID 03/13/20 03/17/20 History propranolol 40 mg PO BID 03/13/20 03/17/20 History glucosamine sulfate [Glucosamine] 500 mg PO DAILY 03/17/20 03/17/20 History multivit,jrdkkpo-vla-lcqxp acd 200 mcg PO DAILY 03/17/20 03/17/20 History hydroxyzine pamoate 25 mg PO Q4HR PRN #30 cap 03/18/20 Rx oxycodone 5 - 10 mg PO Q4-5H PRN #60 tab 03/18/20 Rx Allergies Allergy/AdvReac Type Severity Reaction Status Date / Time No Known Drug Allergies Allergy Verified 03/17/20 06:35 Review of Systems Review of Systems ROS: Yes All systems reviewed with the patient and are negative except as otherwise documented Exam Vital Signs (past 8 hours): Oxygen Delivery Method Room Air Oxygen Flow Rate 0 Back/Spine/Pelvis Other: Painful ROM of lumbar spine, worst at lumbosacral junction Neuro Other: Motor strength 4/5 in bilateral EHL and TA, bilateral sensiblity decreased in L4, L5 dermatome, + straight leg raise in LLE. Assessment & Plan Assessment & Plan narrative: 79 yo M with chronic back pain and leg weakness. Patient failed multiple conservative management for over 6 months. After discussing risks and benefits of surgery treatment, patient elected to proceed with surgery. I scheduled him for L4-5, L5-S1 TLIF. Quality VTE Deep Vein Thrombosis/Pulmonary Embolism Present on Admission: No
== END 2020-03-18 15:41 | disposition home or self-care (01) | DRG 454 ==
PROVIDERS: Admitting Provider Orthopaedic Surgery Orthopaedic Surgery of the Spine; PCP Family Medicine; Referring Provider Orthopaedic Surgery Orthopaedic Surgery of the Spine; Visit Provider Orthopaedic Surgery Orthopaedic Surgery of the Spine
PROC: 0SG00AJ Fusion of Lumbar Vertebral Joint with Interbody Fusion Device, Posterior Approach, Anterior Column, Open Approach (ICD-10-PCS; principal; 2020-03-17 07:45)
DX: M43.16 Spondylolisthesis, lumbar region (principal); G96.0 Cerebrospinal fluid leak; M43.17 Spondylolisthesis, lumbosacral region; M48.061 Spinal stenosis, lumbar region without neurogenic claudication; M48.07 Spinal stenosis, lumbosacral region; M47.27 Other spondylosis with radiculopathy, lumbosacral region; I25.10 Atherosclerotic heart disease of native coronary artery without angina pectoris; J44.9 Chronic obstructive pulmonary disease, unspecified; I10 Essential (primary) hypertension; E11.9 Type 2 diabetes mellitus without complications; Z86.73 Personal history of transient ischemic attack (TIA), and cerebral infarction without residual deficits; Z87.891 Personal history of nicotine dependence
CPT/HCPCS: 72100; 76000; 82962; 87635; 94640; 94760; 97116; 97161; 97165; 97530; 97535; C1776; C9290; J0330; J0690; J1170; J2405; J2704